=== PATIENT | male | born 1960 | race Caucasian/White ===

== ENCOUNTER 2018-08-13 19:42 | Emergency (ER) | payer SELFPAY ==
[~2018-08-13] VITALS: Ht 182.9 cm; Wt 90.7 kg
[2018-08-13] MEDS ORDERED: Sodium Chloride 550 ML IV SCH (20:15)
--- NOTE | 2018-08-13 20:21 | Emergency Room Report ---
History of Present Illness General Chief Complaint: Altered Mental Status Source: Patient Present Illness HPI Patient a history of HIV, on anterior medications, took GHB, and had a bout of altered mental status while at the grocery store. He is improved. He denies any symptoms. He denies any trauma. Allergies: Coded Allergies: No Known Allergies (Unverified , 08/13/18) Patient History Past Medical History: HIV Past Surgical History: none Pertinent Family History: none Nursing Documentation-PMH Past Medical History: No History, Except For Hx Cardiac Problems: No - HIV Review of Systems All Other Systems: negative except mentioned in HPI Physical Exam Vital Signs Date Time Temp Pulse Resp B/P (MAP) Pulse Ox O2 Delivery O2 Flow Rate FiO2 08/13/18 19:49 98.2 105 14 126/74 98 Room Air General Appearance: well appearing, no apparent distress Head: normocephalic, atraumatic ENT: hearing grossly normal, normal voice Neck: full range of motion, supple Respiratory: no respiratory distress, speaking full sentences Musculoskeletal: no calf tenderness Neurologic: alert, normal gait Psychiatric: mood/affect normal Skin: no rash Medical Decision Making Diagnostic Impression: Primary Impression: Altered mental status ER Course Patient was emergently seen and evaluated. Multiple bedside evaluation was done. Patient patient nontoxic-appearing. No other associated symptoms. Blood work was reviewed. The patient has a normal neurological examination. CT was considered but I do not feel the patient requires CT scan at this time. The patient will be discharged home with very close follow-up with his primary care physician and return if any change in symptoms or worsening symptoms. Laboratory Tests Test 08/13/18 20:00 White Blood Count 6.7 K/UL (4.8-10.8) Red Blood Count 4.68 M/UL (4.70-6.10) L Hemoglobin 14.2 G/DL (14.2-18.0) Hematocrit 42.7 % (42.0-52.0) Mean Corpuscular Volume 91 FL (80-99) Mean Corpuscular Hemoglobin 30.3 PG (27.0-31.0) Mean Corpuscular Hemoglobin Concent 33.1 G/DL (32.0-36.0) Red Cell Distribution Width 12.1 % (11.6-14.8) Platelet Count 296 K/UL (150-450) Mean Platelet Volume 6.2 FL (6.5-10.1) L Neutrophils (%) (Auto) 68.2 % (45.0-75.0) Lymphocytes (%) (Auto) 21.7 % (20.0-45.0) Monocytes (%) (Auto) 6.0 % (1.0-10.0) Eosinophils (%) (Auto) 3.2 % (0.0-3.0) H Basophils (%) (Auto) 0.9 % (0.0-2.0) Sodium Level 136 MMOL/L (136-145) Potassium Level 4.2 MMOL/L (3.5-5.1) Chloride Level 99 MMOL/L (98-107) Carbon Dioxide Level 21 MMOL/L (21-32) Anion Gap 16 mmol/L (5-15) H Blood Urea Nitrogen 26 mg/dL (7-18) H Creatinine 2.3 MG/DL (0.55-1.30) H Estimate Glomerular Filtration Rate 29.5 mL/min (>60) Glucose Level 230 MG/DL (74-106) H Calcium Level 9.6 MG/DL (8.5-10.1) Last Vital Signs Date Time Temp Pulse Resp B/P (MAP) Pulse Ox O2 Delivery O2 Flow Rate FiO2 08/13/18 19:49 98.2 105 14 126/74 98 Room Air Disposition: HOME, SELF-CARE Scripts Unable to Obtain Active Prescriptions or Reported Meds Patient Instructions: Altered Mental Status DEBORAH MAYNARD Aug 13, 2018 20:21
[2018-08-13 20:32] LABS: BASOPHILS % (AUTO) 0.9 % (0.0-2.0); EOSINOPHILS % (AUTO) 3.2 % (0.0-3.0); HEMATOCRIT 42.7 % (42.0-52.0); HEMOGLOBIN 14.2 G/DL (14.2-18.0); LYMPHOCYTES % (AUTO) 21.7 % (20.0-45.0); MEAN CORPUSCULAR VOLUME 91 FL (80-99); NEUTROPHILS % (AUTO) 68.2 % (45.0-75.0); PLATELET COUNT 296 K/UL (150-450); RED BLOOD COUNT 4.68 M/UL (4.70-6.10); RED CELL DISTRIBUTION WIDTH 12.1 % (11.6-14.8); WHITE BLOOD COUNT 6.7 K/UL (4.8-10.8)
[2018-08-13 20:34] LABS: ANION GAP 16 mmol/L (5-15); BLOOD UREA NITROGEN 26 mg/dL (7-18); CALCIUM 9.6 MG/DL (8.5-10.1); CARBON DIOXIDE 21 MMOL/L (21-32); CHLORIDE 99 MMOL/L (98-107); CREATININE 2.3 MG/DL (0.55-1.30); POTASSIUM 4.2 MMOL/L (3.5-5.1); SODIUM 136 MMOL/L (136-145)
[2018-08-13 20:35] VITALS: BP 126/74
--- NOTE | 2018-08-13 20:37 | NUR ---
Patient BIBA RA 29 c/o acting altered at grocery store. Per staff patient was opening and closing freezer doors. Upon EMS arrival patient was pale and diaphoretic. BS on scene was 225. Patient admits to taking GHB. Patient is arrousable to name. Patient is AOx4, VSS, no s/s of acute distress noted at this time. Patient seen by ERMD at bedside.
--- NOTE | 2018-08-13 20:38 | NUR ---
ED Nurse Note: Blood sent to lab.
--- NOTE | 2018-08-13 21:15 | NUR ---
ED Nurse Note: Patient is requesting to go home. Patient able to ambulate with steady gait, Patient AOx4, VSS, no s/s of acute distress noted at this time. ERMD notified.
[2018-08-13 21:30] VITALS: BP 126/74
--- NOTE | 2018-08-13 21:37 | NUR ---
ED Nurse Note: Patient cleared for discharge by CAYDEN. Patient AOx4, VSS, ambulatory with steady gait, no s/s of acute distress noted at this time. patient provided with discahrge instructions. Patient verbalized understanding. patient took all personal belongigns with him. Patient called himself an UBER. Patient instructed to follow up with PCP in 1 week. Patient ID band and IV access removed.
== END 2018-08-13 21:30 | disposition home or self-care (01) ==
LOC: EDBD 19:42 → EMR 20:09
DX: R41.82 Altered mental status, unspecified (principal)
CPT/HCPCS: 36415; 80048; 85025; 96360; 96361; 99284